=== PATIENT | female | born 1965 | race Caucasian/White ===

== ENCOUNTER 2018-09-23 12:32 | Outpatient (REF) | payer SELFPAY ==
--- NOTE | 2018-09-23 11:00 | PAPFT_PTH ---
PATIENT: Merle Lancaster LOC: [facility] U#:[id number] AGE/SX: 52/F ROOM: RE09/23/[address]: Joseph Madison : 1965 BED: DIS: 09/23/2018 SPEC #: [id number] RECD: 09/23/18 13:02 STATUS: THALIA REEvette #: [id number] NIKHIL: 09/23/18 11:[address]: Joseph Madison DEPT: [facility] Cytology RECD BY: Catalina Brandt Tissues: 1 - CX/ENDOCX FOR PAP SMEARS Procedures: PAP THIN PREP/[facility] Screening HPV DNA PROBE Comments: [id number]
== END 2018-09-23 12:52 ==
LOC: NCHCN 12:32
PROVIDERS: PCP Family Medicine; Visit Provider Family Medicine
DX: Z12.4 Encounter for screening for malignant neoplasm of cervix (principal); Z11.51 Encounter for screening for human papillomavirus (HPV)
CPT/HCPCS: 88142; 87624

== ENCOUNTER 2019-05-11 10:02 | Outpatient (CLI) | payer OTHER, MEDICAID, SELFPAY ==
--- NOTE | 2019-05-11 09:59 | DI.RAD_ITS ---
EXAM: XR ANKLE RT COMPLETE INDICATION: F/U FRACTURE. COMPARISON: XR ANKLE COMPLETE MIN 3V RT from 04/30/2019 TECHNIQUE: 2D digital imaging was performed. FINDINGS: There has been no change in alignment of the nondisplaced fracture of the distal right fibula. No ne w fracture or dislocation is present. The soft tissues are unremarkable. IMPRESSION: Stable distal fibular fracture.
== END 2019-05-11 10:22 ==
PROVIDERS: PCP Family Medicine; Visit Provider Student in an Organized Health Care Education/Training Program
DX: S82.64XD Nondisplaced fracture of lateral malleolus of right fibula, subsequent encounter for closed fracture with routine healing (principal)
CPT/HCPCS: 73610

== ENCOUNTER 2019-07-14 09:34 | Outpatient (CLI) | payer MEDICAID, SELFPAY ==
--- NOTE | 2019-07-14 09:28 | DI.RAD_ITS ---
EXAM: XR ANKLE RT COMPLETE CLINICAL HISTORY: F/U FRACTURE TECHNIQUE: COMPARISON: XR ANKLE RT COMPLETE from 05/11/2019 FINDINGS: Three views were obtained. Previously described fracture of the distal fibula is again noted with no gross interval change in the alignment of the fracture fragments comparison with previous examinatio n of May 11. The ankle mortise remains well maintained. IMPRESSION:
== END 2019-07-14 09:54 ==
PROVIDERS: PCP Family Medicine; Visit Provider Student in an Organized Health Care Education/Training Program
DX: S82.64XD Nondisplaced fracture of lateral malleolus of right fibula, subsequent encounter for closed fracture with routine healing (principal)
CPT/HCPCS: 73610

== ENCOUNTER 2019-12-14 10:53 | Outpatient (CLI) | payer MEDICAID, SELFPAY ==
--- NOTE | 2019-12-14 10:50 | DI.RAD_ITS ---
EXAM: XR THUMB LT CLINICAL HISTORY: eval L thumb MCP pain and laxity TECHNIQUE: COMPARISON: No exams were available for comparison FINDINGS: Three views were obtained. There is mild narrowing of the cartilaginous joint spaces of IP joint of the thumb. Minimal marginal osteophyte formation noted at the IP joint MCP joint and also at the gre ater multangular 1st metacarpal joint. IMPRESSION: Mild degenerative changes as described above.
== END 2019-12-14 11:13 ==
PROVIDERS: PCP Family Medicine; Referring Provider Family Medicine; Visit Provider Student in an Organized Health Care Education/Training Program
DX: M79.645 Pain in left finger(s) (principal); M18.12 Unilateral primary osteoarthritis of first carpometacarpal joint, left hand; M19.042 Primary osteoarthritis, left hand
CPT/HCPCS: 73140

== ENCOUNTER 2020-08-13 15:40 | Outpatient (REF) | payer MEDICAID, SELFPAY ==
[2020-08-13 18:16] LABS: Abs Immature Grans 0.01 10^3/uL (0.0-0.06); Absolute Basophil Count 0.03 10^3/uL (0.0-0.2); Absolute Eosinophil Count 0.26 10^3/uL (0.0-0.7); Absolute Lymphocyte Count 2.23 10^3/uL (1.2-3.4); Absolute Monocyte Count 0.55 10^3/uL (0.1-0.8); Absolute Neutrophil Count 2.89 10^3/uL (1.2-6.7); Basophils % 0.5; Eosinophils % 4.4; HCT 40.5 % (36.0-46.0); HGB 13.2 g/dL (11.2-15.7); Immature Grans % 0.2; Lymphocytes % 37.4; MCH 29.9 pg (27.0-33.0); MCHC 32.6 % (32.0-36.0); MCV 91.6 fL (80-95); MPV 10.5 fL (8.0-11.0); Monocytes % 9.2; Neutrophils % 48.3; Nucleated RBC 0 %; Platelet Count 365 10^3/uL (130-400); RBC 4.42 10^6/uL (3.93-5.22); RDW 13.4 % (11.7-14.6); RDW-SD 45.8 fL; WBC 5.97 10^3/uL (4.4-10.8)
[2020-08-13 19:36] LABS: ALT 86 U/L (14-59); AST 37 U/L (15-37); Albumin 4.1 g/dL (3.4-5.0); Alkaline Phosphatase 106 U/L (46-116); Anion Gap 9.7 mmol/L (3-11); BUN 12 mg/dL (7-18); Bilirubin, Total 0.3 mg/dL (0.2-1.0); CO2 26.3 mmol/L (21.0-32.0); CREATININE 0.8 mg/dL (0.55-1.02); Calcium 9.4 mg/dL (8.5-10.1); Chloride 102 mmol/L (98-107); Glucose 82 mg/dL (74-106); Lipase 160 U/L (73-393); Potassium 4.1 mmol/L (3.5-5.1); Sodium 138 mmol/L (136-145); Total Protein 6.9 g/dL (6.4-8.2)
== END 2020-08-13 15:41 | disposition home or self-care (01) ==
LOC: NCHCN 15:40
PROVIDERS: PCP Family Medicine; Visit Provider Family Medicine
DX: R10.11 Right upper quadrant pain (principal)
CPT/HCPCS: 80053; 83690; 85025

== ENCOUNTER 2021-03-21 18:19 | Outpatient (REF) | payer MEDICAID, SELFPAY ==
[2021-03-23 13:57] LABS: COVID-19 RT-PCR UVMMC Result Negative (Negative)
== END 2021-03-21 18:20 | disposition home or self-care (01) ==
LOC: NCHCN 18:19
PROVIDERS: PCP Family Medicine; Visit Provider Family Medicine
DX: Z20.822 Contact with and (suspected) exposure to COVID-19 (principal); R19.7 Diarrhea, unspecified; R11.2 Nausea with vomiting, unspecified
CPT/HCPCS: U0003

== ENCOUNTER 2021-04-16 15:15 | Outpatient (REF) | payer MEDICAID, SELFPAY ==
[2021-04-16 16:17] LABS: HCT 43.7 % (36.0-46.0); HGB 14.1 g/dL (11.2-15.7); MCH 29.7 pg (27.0-33.0); MCHC 32.3 % (32.0-36.0); MCV 92.2 fL (80-95); MPV 11.2 fL (8.0-11.0); Platelet Count 348 10^3/uL (130-400); RBC 4.74 10^6/uL (3.93-5.22); RDW 13.9 % (11.7-14.6); RDW-SD 47.9 fL; WBC 6.43 10^3/uL (4.4-10.8)
[2021-04-16 16:22] LABS: ESR 4 mm/hr (0-30)
[2021-04-16 16:29] LABS: Iron 111 ug/dL (50-170); Total Iron Binding Capacity 446 ug/dL (250-450); Transferrin Sat 25 % (15-50)
[2021-04-16 16:30] LABS: ALT 39 U/L (14-59); AST 31 U/L (15-37); Albumin 4.1 g/dL (3.4-5.0); Alkaline Phosphatase 92 U/L (46-116); Anion Gap 9.8 mmol/L (3-11); BUN 13 mg/dL (7-18); Bilirubin, Total 0.4 mg/dL (0.2-1.0); CO2 26.2 mmol/L (21.0-32.0); CREATININE 0.7 mg/dL (0.55-1.02); Calcium 9.1 mg/dL (8.5-10.1); Calculated LDL 147 mg/dL (<100); Chloride 108 mmol/L (98-107); Cholesterol 260 mg/dL (<200); Glucose 76 mg/dL (74-106); HDL Cholesterol 88 mg/dL (40-60); Potassium 4.7 mmol/L (3.5-5.1); Sodium 144 mmol/L (136-145); Total Protein 7.1 g/dL (6.4-8.2); Triglyceride 127 mg/dL (<150)
[2021-04-16 16:39] LABS: Hemoglobin A1C 5.4 % (<5.7)
[2021-04-18 09:54] LABS: Hepatitis B Surface Ag Negative (Negative)
[2021-04-18 10:16] LABS: HIV-1/2 Ag & Ab Screen Negative (Negative)
[2021-04-18 10:34] LABS: Hepatitis C Ab w Rflx HCV PCR Negative (Negative)
== END 2021-04-16 15:16 | disposition home or self-care (01) ==
LOC: NCHCN 15:15
PROVIDERS: PCP Family Medicine; Visit Provider Family Medicine
DX: M79.7 Fibromyalgia (principal); Z11.59 Encounter for screening for other viral diseases; R74.8 Abnormal levels of other serum enzymes; Z00.00 Encounter for general adult medical examination without abnormal findings; Z13.220 Encounter for screening for lipoid disorders; Z13.1 Encounter for screening for diabetes mellitus; Z11.4 Encounter for screening for human immunodeficiency virus [HIV]
CPT/HCPCS: 80053; 80061; 85027; 85652; 86803; 87340; 87389; 83036; 83540; 83550

== ENCOUNTER 2021-09-19 15:38 | Outpatient (REF) | payer MEDICAID, SELFPAY ==
[2021-09-19 16:59] LABS: HCT 39.9 % (36.0-46.0); HGB 12.8 g/dL (11.2-15.7); MCHC 32.1 % (32.0-36.0); MCV 93.7 fL (80-95); MPV 10.8 fL (8.0-11.0); Platelet Count 358 10^3/uL (130-400); RBC 4.26 10^6/uL (3.93-5.22); RDW 14.3 % (11.7-14.6); RDW-SD 49.1 fL; WBC 6.51 10^3/uL (4.4-10.8)
[2021-09-19 17:26] LABS: ALT 54 U/L (14-59); AST 35 U/L (15-37); Alkaline Phosphatase 77 U/L (46-116); Anion Gap 7.1 mmol/L (3-11); BUN 13 mg/dL (7-18); Bilirubin, Total 0.2 mg/dL (0.2-1.0); CO2 28.9 mmol/L (21.0-32.0); CREATININE 0.8 mg/dL (0.55-1.02); Calcium 8.7 mg/dL (8.5-10.1); Chloride 105 mmol/L (98-107); Glucose 88 mg/dL (74-106); Potassium 4.6 mmol/L (3.5-5.1); Sodium 141 mmol/L (136-145); Total Protein 6.7 g/dL (6.4-8.2)
== END 2021-09-19 15:39 | disposition home or self-care (01) ==
LOC: NCHCN 15:38
PROVIDERS: PCP Family Medicine; Visit Provider Family Medicine
DX: R10.11 Right upper quadrant pain (principal)
CPT/HCPCS: 80053; 85027

== ENCOUNTER 2022-09-15 17:51 | Outpatient (REF) | payer MEDICAID, SELFPAY ==
[2022-09-15 16:42] LABS: ALT 68 U/L (14-59); AST 35 U/L (15-37); Albumin 4.4 g/dL (3.4-5.0); Alkaline Phosphatase 103 U/L (46-116); Anion Gap 11.1 mmol/L (3-11); BUN 7 mg/dL (7-18); Bilirubin, Total 0.4 mg/dL (0.2-1.0); CO2 24.9 mmol/L (21.0-32.0); CREATININE 0.7 mg/dL (0.55-1.02); Calcium 9.6 mg/dL (8.5-10.1); Chloride 108 mmol/L (98-107); Estimated GFR 102.07 (mL/min/1.73m2); Glucose 98 mg/dL (74-106); Potassium 4.3 mmol/L (3.5-5.1); Sodium 144 mmol/L (136-145); Total Protein 7.4 g/dL (6.4-8.2)
[2022-09-15 17:32] LABS: COMMENT (LAB VIEW ONLY) 19.62 mg/dL; Microalb ug/mg Crea 41.8 ug/mg Cr
== END 2022-09-15 17:52 | disposition home or self-care (01) ==
LOC: NCHCN 17:51
PROVIDERS: PCP Family Medicine; Visit Provider Family Medicine
DX: I10 Essential (primary) hypertension (principal); K83.8 Other specified diseases of biliary tract
CPT/HCPCS: 80053; 82043; 82570; 84443

== ENCOUNTER 2023-12-29 17:37 | Outpatient (REF) | payer MEDICAID, SELFPAY ==
[2023-12-29 20:02] LABS: Abs Immature Grans 0.01 10^3/uL (0.0-0.06); Absolute Basophil Count 0.02 10^3/uL (0.0-0.2); Absolute Eosinophil Count 0.22 10^3/uL (0.0-0.7); Absolute Lymphocyte Count 1.01 10^3/uL (1.2-3.4); Absolute Monocyte Count 0.65 10^3/uL (0.1-0.8); Basophils % 0.4 %; Eosinophils % 4.5 %; HCT 37.8 % (36.0-46.0); HGB 12.5 g/dL (11.2-15.7); Immature Grans % 0.2 %; Lymphocytes % 20.6 %; MCH 30.8 pg (27.0-33.0); MCHC 33.1 % (32.0-36.0); MCV 93 fL (80-95); MPV 11.3 fL (8.0-11.0); Monocytes % 13.2 %; Neutrophils % 61.1 %; Platelet Count 329 10^3/uL (130-400); RBC 4.06 10^6/uL (3.93-5.22); RDW 14.1 % (11.7-14.6); RDW-SD 48.5 fL; WBC 4.91 10^3/uL (4.4-10.8)
[2023-12-29 20:21] LABS: Anion Gap 10.1 mmol/L (3-11); BUN 11 mg/dL (7-18); CO2 24.9 mmol/L (21.0-32.0); CREATININE 0.7 mg/dL (0.55-1.02); Calcium 9.2 mg/dL (8.5-10.1); Calculated LDL 95 mg/dL (<100); Chloride 107 mmol/L (98-107); Cholesterol 201 mg/dL (<200); Estimated GFR 100.81 (mL/min/1.73m2); Glucose 94 mg/dL (74-106); HDL Cholesterol 85 mg/dL (40-60); Sodium 142 mmol/L (136-145); Triglyceride 109 mg/dL (<150)
[2023-12-29 20:26] LABS: Hemoglobin A1C 5.4 % (<5.7)
== END 2023-12-29 17:38 | disposition home or self-care (01) ==
LOC: NCHCN 17:37
PROVIDERS: PCP Family Medicine; Visit Provider Student in an Organized Health Care Education/Training Program
DX: Z13.220 Encounter for screening for lipoid disorders (principal); Z13.1 Encounter for screening for diabetes mellitus; I10 Essential (primary) hypertension
CPT/HCPCS: 80048; 80061; 83036; 83735; 85025

== ENCOUNTER 2024-06-05 11:58 | Outpatient (REF) | payer MEDICARE, MEDICAID, SELFPAY ==
[2024-06-08 06:52] LABS: Methylphenidate 752 ng/mL (Cutoff: 10); Ritalinic Acid 9916 ng/mL (Cutoff: 50)
== END 2024-06-05 11:59 | disposition home or self-care (01) ==
LOC: NCHCN 11:58
PROVIDERS: PCP Family Medicine; Visit Provider Student in an Organized Health Care Education/Training Program
DX: F90.9 Attention-deficit hyperactivity disorder, unspecified type (principal)
CPT/HCPCS: 80360

== ENCOUNTER 2024-11-08 14:42 | Outpatient (REF) | payer MEDICARE, MEDICAID, SELFPAY ==
[2024-11-17 11:19] LABS: Codeine Negative ng/mL (Cutoff: 25); Dihydrocodeine 387 ng/mL (Cutoff: 25); Hydrocodone 987 ng/mL (Cutoff: 25); Hydromorphone 196 ng/mL (Cutoff: 25); Morphine Negative ng/mL (Cutoff: 25); Naloxone Negative ng/mL (Cutoff: 25); Norhydrocodone 1805 ng/mL (Cutoff: 25); Noroxymorphone 155 ng/mL (Cutoff: 25); Opiates Interpretation Positive.
== END 2024-11-08 14:43 | disposition home or self-care (01) ==
LOC: NCHCN 14:42
PROVIDERS: PCP Family Medicine; Visit Provider Student in an Organized Health Care Education/Training Program
DX: G89.29 Other chronic pain (principal); Z79.899 Other long term (current) drug therapy
CPT/HCPCS: 80361; 80362; 80365

== ENCOUNTER 2025-05-07 18:21 | Outpatient (REF) | payer MEDICARE, MEDICAID, SELFPAY ==
[2025-05-07 22:04] LABS: Abs Immature Grans 0.00 10^3/uL (0.0-0.06); HCT 41.1 % (36.0-46.0); HGB 13.3 g/dL (11.2-15.7); Immature Grans % 0.0 %; MCH 29.8 pg (27.0-33.0); MCHC 32.4 % (32.0-36.0); MCV 92 fL (80-95); MPV 11.4 fL (8.0-11.0); Platelet Count 347 10^3/uL (130-400); RBC 4.47 10^6/uL (3.93-5.22); RDW 13.4 % (11.7-14.6); RDW-SD 45.6 fL; WBC 4.86 10^3/uL (4.4-10.8)
[2025-05-07 22:18] LABS: ALT 72 U/L (10-49); AST 57 U/L (<34); Albumin 4.3 g/dL (3.4-5.0); Alkaline Phosphatase 108 U/L (46-116); Anion Gap 9.6 mmol/L (3-11); BUN 10 mg/dL (9-23); Bilirubin, Total 0.40 mg/dL (0.2-1.2); CO2 26.4 mmol/L (20.0-31.0); Calcium 9.6 mg/dL (8.3-10.6); Chloride 109 mmol/L (98-107); Glucose 114 mg/dL (74-106); Potassium 4.1 mmol/L (3.5-5.1); Sodium 145 mmol/L (136-145); Total Protein 6.5 g/dL (5.7-8.2)
[2025-05-07 22:22] LABS: TSH (W/Ref FT4) 0.45 uIU/mL (0.55-4.78)
[2025-05-07 22:23] LABS: Vitamin D 25 Total 9 ng/mL (30-100)
== END 2025-05-07 18:22 | disposition home or self-care (01) ==
LOC: NCHCN 18:21
PROVIDERS: PCP Family Medicine; Visit Provider Student in an Organized Health Care Education/Training Program
DX: R53.83 Other fatigue (principal); E55.9 Vitamin D deficiency, unspecified
CPT/HCPCS: 80053; 82306; 84439; 84443; 85025